=== PATIENT | female | born 1980 | race Hispanic/Latino ===

== ENCOUNTER 2018-09-08 14:51 | Emergency (ER) | payer MEDICAID, OTHER ==
[2018-09-08] MEDS ORDERED: LIDOCAINE HCL 2% VISCOUS 15 ML UDCUP ONE (15:09)
[2018-09-08] MEDS ORDERED: IBUPROFEN 400 MG TABLET ONE (15:09)
[2018-09-08] MEDS ORDERED: IBUPROFEN 200 MG TAB ONE (15:10)
== END 2018-09-08 15:23 | disposition home or self-care (01) ==
LOC: EDH 14:51
DX: B00.9 Herpesviral infection, unspecified (principal); Z72.0 Tobacco use

== ENCOUNTER 2020-02-19 16:40 | Emergency (ER) | payer MEDICAID ==
[2020-02-19 20:10] LABS: APPEARANCE,URINE CLOUDY (CLEAR); BILIRUBIN,URINE SMALL (NEGATIVE); COLOR,URINE YELLOW (YELLOW); GLUCOSE, URINE (UA) NEGATIVE (NEGATIVE); KETONES,URINE 15 mg/dL (NEGATIVE); LEUKOCYTE ESTERASE ,URINE MODERATE (NEGATIVE); NITRATE,URINE NEGATIVE (NEGATIVE); OCCULT BLOOD,URINE SMALL (NEGATIVE); PH,URINE 5.5 (5.0-8.0); PROTEIN,URINE TRACE mg/dL (NEGATIVE); UROBILINOGEN,URINE 0.2 mg/dL (0.2-1.0)
[2020-02-19 20:19] LABS: HCG,QUAL RESULT NEGATIVE (NEGATIVE)
[2020-02-19] MEDS ORDERED: CEFTRIAXONE SODIUM 1 GM ONE (20:21)
[2020-02-19] MEDS ORDERED: IBUPROFEN 600 MG TABLET ONE (20:21)
[2020-02-19] MEDS ORDERED: LIDOCAINE HCL-MPF 1% 2ML VIAL ONE (20:21)
[2020-02-19 20:40] LABS: BACTERIA,URINE Moderate /HPF (None Seen); SQUAMOUS EPITHELIAL CELL,UR Many /HPF (0-2); WBC,URINE 51-100 /HPF (0-1)
== END 2020-02-19 20:44 | disposition home or self-care (01) ==
LOC: EDH 16:40
DX: N39.0 Urinary tract infection, site not specified (principal); Z72.0 Tobacco use; Z20.828 Contact with and (suspected) exposure to other viral communicable diseases
CPT/HCPCS: 81001; 81025; 87077; 87088; 87186; 87426; 96372; 99283; J0696; J3490

== ENCOUNTER 2020-04-15 18:04 | Emergency (ER) | payer MEDICAID ==
[2020-04-15] MEDS ORDERED: KETOROLAC 30MG VIAL (30MG/ML) ONE (18:43)
[2020-04-15] MEDS ORDERED: CLINDAMYCIN 150 MG CAP ONE (19:14)
[2020-04-15] MEDS ORDERED: CEFTRIAXONE 500MG VIAL ONE (19:14)
[2020-04-15] MEDS ORDERED: LIDOCAINE HCL-MPF 1% 2ML VIAL ONE (19:14)
[2020-04-15] MEDS ORDERED: AZITHROMYCIN 250 MG TABLET PO ONE (19:15)
[2020-04-15] MEDS ORDERED: LIDOCAINE HCL 1% 20 ML VIAL ONE (20:12)
== END 2020-04-15 20:48 | disposition home or self-care (01) ==
LOC: EDH 18:04
DX: N75.1 Abscess of Bartholin's gland (principal); Z86.19 Personal history of other infectious and parasitic diseases; Z72.0 Tobacco use
CPT/HCPCS: 56420; 87070; 87076; 87077; 87186; 96372 ×2; 99284; J0696; J1885; J3490

== ENCOUNTER 2020-04-17 15:34 | Emergency (ER) | payer MEDICAID | END 2020-04-17 15:56 | disposition home or self-care (01) | LOC: EDH 15:34 | DX: N75.1 Abscess of Bartholin's gland (principal); Z72.0 Tobacco use; Z86.19 Personal history of other infectious and parasitic diseases | CPT/HCPCS: 99281 ==

== ENCOUNTER 2022-07-25 12:40 | Emergency (ER) | payer MEDICAID ==
[~2022-07-25] VITALS: Ht 157.5 cm; Wt 122.5 kg
[2022-07-25 12:41] VITALS: BP 136/108
[2022-07-25 15:45] LABS: APPEARANCE,URINE CLOUDY (CLEAR); BILIRUBIN,URINE NEGATIVE (NEGATIVE); COLOR,URINE YELLOW (YELLOW); GLUCOSE, URINE (UA) NEGATIVE (NEGATIVE); KETONES,URINE NEGATIVE (NEGATIVE); LEUKOCYTE ESTERASE ,URINE 500 Leu/uL (NEGATIVE); NITRATE,URINE NEGATIVE (NEGATIVE); OCCULT BLOOD,URINE SMALL (NEGATIVE); PH,URINE 5.5 (5.0-8.0); PROTEIN,URINE 30 mg/dL (NEGATIVE); UROBILINOGEN,URINE 0.2 mg/dL (0.2-1.0)
[2022-07-25 15:50] LABS: BACTERIA,URINE FEW /HPF (None Seen); MUCUS,URINE RARE LPF (None Seen); SQUAMOUS EPITHELIAL CELL,UR MOD /HPF (0-2); WBC,URINE TNTC /HPF (0-1)
[2022-07-25] MEDS ORDERED: CEFTRIAXONE 1G VIAL IM ONE (16:00)
[2022-07-25] MEDS ORDERED: SULF1TAB42 PO (16:07)
== END 2022-07-25 17:00 | disposition home or self-care (01) ==
LOC: EDH 12:40
DX: N39.0 Urinary tract infection, site not specified (principal); E11.9 Type 2 diabetes mellitus without complications
CPT/HCPCS: 99283; 87077; 87088; 87186; 81001; 96372; J0696